=== PATIENT | female | born 1995 | race African-American/Black ===

== ENCOUNTER 2018-03-09 | Emergency (ER) | payer SELFPAY ==
[~2018-03-09] VITALS: Ht 167.6 cm; Wt 75.0 kg
[2018-03-09 00:09] VITALS: BP 130/70; PULSE 100; RESP 18; TEMP 98.3; O2SAT 100
[2018-03-09 00:20] VITALS: BP 128/73; PULSE 107; RESP 18; O2SAT 100
--- NOTE | 2018-03-09 01:03 | RADRPT ---
EXAM DATE/TIME: 03/09/2018 00:47 [place] COMPARISON: No previous studies available for comparison. INDICATIONS : Headaches. RADIATION DOSE: 56.34 CTDIvol (mGy) MEDICAL HISTORY : None SURGICAL HISTORY : None. ENCOUNTER: Initial ACUITY: 1 day PAIN SCALE: 8/10 LOCATION: cranial TECHNIQUE: Multiple contiguous axial images were obtained of the head. Using automated exposure control and adj ustment of the mA and/or kV according to patient size, radiation dose was kept as low as reasonably a chievable to obtain optimal diagnostic quality images. DICOM format image data is available electro nically for review and comparison. FINDINGS: CEREBRUM: The ventricles are normal for age. No evidence of midline shift, mass lesion, hemorrhage or acute in farction. No extra-axial fluid collections are seen. POSTERIOR FOSSA: The cerebellum and brainstem are intact. The 4th ventricle is midline. The cerebellopontine angle i s unremarkable. EXTRACRANIAL: The visualized portion of the orbits is intact. SKULL: The calvaria is intact. No evidence of skull fracture. CONCLUSION: Negative exam. No acute intracranial process to explain current clinical symptoms. Sahil Espinal MD on March 09, 2018 at 1:00 Board Certified Radiologist. This report was verified electronically.
--- NOTE | 2018-03-09 01:04 | PD ---
HPI Chief Complaint: Headache Time Seen by Provider: 00:21 Travel History International Travel<30 days: No Contact w/Intl Traveler<30days: No Traveled to known affect area: No History of Present Illness HPI The patient is a 22 year old female who presents to the [facility] emergency department with a history of irregular vaginal bleeding that began 2 months ago. She has been passing blood clots which is also new. She has severe cramping associated with it. She had menarche at 15 years of age. She additionally has a headache that began last night. It has been constant. It is not getting worse with time. It is worse with bending over. It is all over her head but worse over the forehead. It is a pounding sensation. She denies sensitivity to light. She reports sensitivity to sound. The patient denies any history of fever, sore throat, cough, congestion, neck pain, chest pain, shortness of breath, abdominal pain, vomiting, diarrhea, urinary symptoms, or other neurologic symptoms. PFSH Past Medical History Narrative Medical The patient's past medical history is reported none. Blood Disorders: Yes (pt unsure what is is called) Diminished Hearing: No Tetanus Vaccination: Unknown Influenza Vaccination: No ?: Unknown LMP: 02/06/2018 : 3 Para: 1 Miscarriage: 1 : 1 Past Surgical History Narrative Surgical The patient's past surgical history is significant for an elective - last year. Surgical History: No Previous Surgery Social History Alcohol Use: No Tobacco Use: No Substance Use: No Allergies-Medications (Allergen,Severity, Reaction): Coded Allergies: No Known Allergies (Unverified , 03/09/18) Reported Meds & Prescriptions Reported Meds & Active Scripts Active Macrobid (Nitrofurantoin Monoh/Nitrofur Macro) 100 Mg Cap 100 Mg PO BID 10 Days Flagyl (Metronidazole) 500 Mg Tab 500 Mg PO BID 7 Days Review of Systems Except as stated in HPI: all other systems reviewed are Neg General / Constitutional: No: Fever Eyes: No: Visual changes HENT: Positive: Headaches, No: Rhinorrhea, Congestion, Neck Stiffness, Neck Pain Cardiovascular: No: Chest Pain or Discomfort Respiratory: No: Shortness of Breath Gastrointestinal: No: Nausea, Vomiting, Diarrhea, Abdominal Pain, Changes in Bowel Habits Genitourinary: Positive: Vaginal Bleeding, No: Dysuria Musculoskeletal: No: Pain Skin: No Rash Neurologic: Positive: Headache, No: Weakness, Focal Abnormalities, Change in Mentation, Slurred Speech, Sensory Disturbance Psychiatric: No: Depression Endocrine: No: Polydipsia Hematologic/Lymphatic: No: Easy Bruising Physical Exam Narrative General: The patient is a well-developed well-nourished female in no acute distress. Head and Neck exam: Head is normocephalic atraumatic. Eyes: EOMI, pupils are equal round and reactive to light. Nose: Midline septum with pink mucous membranes Mouth: Dentition unremarkable. Moist mucus membranes. Posterior oropharynx is not erythematous. No tonsillar hypertrophy. Uvula midline. Airway patent. Neck: No palpable lymphadenopathy. No nuchal rigidity. No thyromegaly. Cardiovascular: Regular rate and rhythm without murmurs, gallops, or rubs. Lungs: Clear to auscultation bilaterally. No wheezes, rhonchi, or rales. Abdomen: Soft, without tenderness to palpation in all 4 quadrants of the abdomen. No guarding, rebound, or rigidity. Normal bowel sounds are audible. No tenderness on palpation of McBurney's point. Negative Terrell sign. Extremities: No clubbing, cyanosis, or edema. 2+ pulses in all 4 extremities. No calf tenderness on palpation. Back: No spinous process tenderness to palpation. No costovertebral angle tenderness to palpation. Neurologic Exam: Grossly nonfocal. Skin Exam: No rash noted. Intact skin that is warm and dry. Gynecologic exam: The patient was placed in the dorsal lithotomy position. Her external genitalia were examined. She had no evidence of rash or lesions. The speculum was placed into her vagina and the cervix was identified. She had a physiologic appearing white discharge with an odor. No cervical friability. On Bimanual exam: she has no cervical motion tenderness. No adnexal tenderness or prominence noted on palpation. No uterine tenderness or enlargement noted on palpation. Data Data Last Documented VS Vital Signs Date Time Temp Pulse Resp B/P (MAP) Pulse Ox O2 Delivery O2 Flow Rate FiO2 03/09/18 04:23 03/09/18 00:20 107 18 100 Room Air 03/09/18 00:09 98.3 Orders Orders Complete Blood Count With Diff (03/09/18 00:22) Comprehensive Metabolic Panel (03/09/18 00:22) Prothrombin Time / Inr (Pt) (03/09/18 00:22) Act Partial Throm Time (Ptt) (03/09/18 00:22) Lipase (03/09/18:22) Urinalysis - C+S If Indicated (03/09/18 00:22) Ct Brain W/O Iv Contrast(Rout) (03/09/18 00:22) Iv Access Insert/Monitor (03/09/18 00:22) Ecg Monitoring (03/09/18:22) Oximetry (03/09/18 00:22) Ed Urine Pregnancytest Poc (03/09/18 00:22) Urine Culture (03/09/18 00:47) Gc And Chlamydia Pcr (03/09/18 01:36) Wet Prep Profile (03/09/18 01:36) Ceftriaxone Inj (Rocephin Inj) (03/09/18 01:45) Sodium Chlor 0.9% 1000 Ml Inj (Ns 1000 M (03/09/18 01:45) Ketorolac Inj (Toradol Inj) (03/09/18 01:45) Labs Laboratory Tests Test 03/09/18 00:47 03/09/18 01:59 White Blood Count 11.8 TH/MM3 Red Blood Count 4.24 MIL/MM3 Hemoglobin 12.6 GM/DL Hematocrit 37.3 % Mean Corpuscular Volume 88.0 FL Mean Corpuscular Hemoglobin 29.8 PG Mean Corpuscular Hemoglobin Concent 33.9 % Red Cell Distribution Width 13.8 % Platelet Count 348 TH/MM3 Mean Platelet Volume 7.7 FL Neutrophils (%) (Auto) 63.0 % Lymphocytes (%) (Auto) 28.1 % Monocytes (%) (Auto) 7.1 % Eosinophils (%) (Auto) 1.4 % Basophils (%) (Auto) 0.4 % Neutrophils # (Auto) 7.4 TH/MM3 Lymphocytes # (Auto) 3.3 TH/MM3 Monocytes # (Auto) 0.8 TH/MM3 Eosinophils # (Auto) 0.2 TH/MM3 Basophils # (Auto) 0.0 TH/MM3 CBC Comment DIFF FINAL Differential Comment Prothrombin Time 11.2 SEC Prothromb Time International Ratio 1.1 RATIO Activated Partial Thromboplast Time 26.2 SEC Urine Color YELLOW Urine Turbidity HAZY Urine pH 6.0 Urine Specific Crozier 1.025 Urine Protein TRACE mg/dL Urine Glucose (UA) NEG mg/dL Urine Ketones NEG mg/dL Urine Occult Blood NEG Urine Nitrite NEG Urine Bilirubin NEG Urine Urobilinogen LESS THAN 2.0 MG/DL Urine Leukocyte Esterase MOD Urine RBC 4 /hpf Urine WBC 17 /hpf Urine Squamous Epithelial Cells 6 /hpf Urine Bacteria MANY /hpf Urine Hyaline Casts 2 /lpf Urine Mucus FEW /lpf Microscopic Urinalysis Comment CULTURE INDICATED Blood Urea Nitrogen 12 MG/DL Creatinine 1.05 MG/DL Random Glucose 109 MG/DL Total Protein 8.1 GM/DL Albumin 4.0 GM/DL Calcium Level 9.1 MG/DL Alkaline Phosphatase 68 U/L Aspartate Amino Transf (AST/SGOT) 13 U/L Alanine Aminotransferase (ALT/SGPT) 19 U/L Total Bilirubin 0.2 MG/DL Sodium Level 138 MEQ/L Potassium Level 3.7 MEQ/L Chloride Level 106 MEQ/L Carbon Dioxide Level 22.9 MEQ/L Anion Gap 9 MEQ/L Estimat Glomerular Filtration Rate 66 ML/MIN Lipase 113 U/L Clue Cells (Wet Prep) PRESENT Vaginal Trichomonas (Wet Prep) NONE SEEN Vaginal Yeast (Wet Prep) NONE SEEN Chlamydia trachomatis DNA (PCR) NOT DETECTED Neisseria gonorrhoeae DNA (PCR) NOT DETECTED MDM Medical Decision Making Medical Screen Exam Complete: Yes Emergency Medical Condition: Yes Medical Record Reviewed: Yes Interpretation(s) Last Impressions Head CT 03/09/18 002 Signed Impressions: Service Date/Time: Friday, March 09, 2018 00:47 - CONCLUSION: Negative exam. No acute intracranial process to explain current clinical symptoms. Sahil Espinal MD Differential Diagnosis Dysfunctional uterine bleeding due to anovulatory cycles, versus menorrhagia, versus cervicitis, versus urinary tract infection, versus viral syndrome, versus symptomatic anemia Narrative Course During the course of the patient's emergency department visit, the patient's history, examination, and differential diagnosis were reviewed with the patient. The patient was placed on a cardiac sonographer with oximetry and frequent blood pressure monitoring. The patient had IV access obtained and blood work sent for analysis. The patient was initially provided Normal saline 1 L IV fluid bolus, Toradol for pain. The patient's laboratory studies were reviewed and remarkable for: 03/09/18 00:47 Total Protein 8.1, Albumin 4.0, Calcium Level 9.1, Alkaline Phosphatase 68, Aspartate Amino Transf (AST/SGOT) 13 L, Alanine Aminotransferase (ALT/SGPT) 19, Total Bilirubin 0.2. PT PTT within normal limits, urinalysis shows signs of urinary tract infection with moderate leukocyte esterase, RBCs 4, WBCs 17, many bacteria, culture indicated. Wet prep is positive for clue cells consistent with bacterial vaginosis. GC and Chlamydia are not detected. Radiology studies were reviewed and remarkable for Last Impressions Head CT 03/09/18 0022 Signed Impressions: Service Date/Time: Friday, March 09, 2018 00:47 - CONCLUSION: Negative exam. No acute intracranial process to explain current clinical symptoms. Sahil Espinal MD The patient was given Rocephin 1 g IV for a urinary tract infection. The patient will be discharged home on antibiotic for urinary tract infection and Flagyl for bacterial vaginosis. She was instructed to follow-up with an [employer]Y [employer]IC regarding her dysfunctional uterine bleeding, as she would likely need additional hormone related testing and possible oral contraceptives to regulate her cycle. The patient is resting comfortably and feels better, is alert and in no distress. The patient's results and examination findings were discussed with the patient. The repeat examination is unremarkable and benign. The history, exam, diagnostic testing, and current condition do not suggest any significant pathology to warrant further testing, continued ED treatment, admission, or surgical evaluation at this point. The vital signs have been stable. The patient does not have uncontrollable pain, intractable vomiting, or other significant symptoms. The patient's condition is stable and appropriate for discharge. The patient will pursue further outpatient evaluation with a primary care physician or other designated or consulting physician as indicated in the discharge instructions. The patient was instructed that if she develops any new or worsening signs or symptoms, she should report back immediately to the emergency department. The patient expressed understanding and was agreeable with this plan. Diagnosis Primary Impression: Bacterial vaginosis Additional Impressions: Urinary tract infection Qualified Codes: N30.00 - Acute cystitis without hematuria Uterine bleeding, dysfunctional Referrals: Kerri Saavedra MD 1 week Sql [employer] 1 week [facility] 1 week Patient Instructions: Bacterial Vaginosis (ED), Dysfunctional Uterine Bleeding (ED), General Instructions, Urinary Tract Infection in Women (ED) Med/Other Pt SpecificInfo: Prescription(s) given Scripts Nitrofurantoin Monohydrate Macrocrystals (Macrobid) 100 Mg Cap 100 MG PO BID for Infection for 10 Days, #20 CAP 0 Refills Prov: Geetha Vega MD 03/09/18 Metronidazole (Flagyl) 500 Mg Tab 500 MG PO BID for Infection for 7 Days, #14 TAB 0 Refills Prov: Geetha Vega MD 03/09/18 Disposition: 01 DISCHARGE HOME Condition: Stable Geetha Vega MD Mar 09, 2018 01:04
[2018-03-09 01:06] LABS: BACTERIA, URINE MANY /hpf; BILIRUBIN, URINE NEG (NEG); BLOOD, URINE NEG (NEG); GLUCOSE,URINE NEG (NEG); HYALINE CAST, URINE 2 /lpf (RARE); KETONE, URINE NEG (NEG); MUCUS URINE FEW /lpf (OCC); NITRITE,URINE NEG (NEG); SQUAMOUS EPITHELIAL CELL URINE 6 /hpf (0-5); URINE COLOR YELLOW (YELLW/STRAW); URINE LEUKOCYTE ESTERASE MOD (NEG)
[2018-03-09 01:07] LABS: INTERNATIONAL NORMALIZED RATIO 1.1 RATIO; PROTHROMBIN TIME - PATIENT 11.2 SEC (9.8-11.6)
[2018-03-09 01:08] LABS: AUTOMATED NEUTROPHIL # 7.4 TH/MM3 (1.8-7.7); BASOPHIL % 0.4 % (0.0-2.0); EOSINOPHIL # 0.2 TH/MM3 (0-0.4); EOSINOPHIL % 1.4 % (0.0-4.0); HEMATOCRIT 37.3 % (35.0-46.0); HEMOGLOBIN 12.6 GM/DL (11.6-15.3); LYMPH % 28.1 % (9.0-44.0); LYMPHOCYTE # 3.3 TH/MM3 (1.0-4.8); MEAN CORPUSCULAR HEMOGLOBIN 29.8 PG (27.0-34.0); MEAN CORPUSCULAR HGB CONC 33.9 % (32.0-36.0); MEAN PLATELET VOLUME 7.7 FL (7.0-11.0); MONO % 7.1 % (0.0-8.0); MONOCYTE # 0.8 TH/MM3 (0-0.9); PLATELET COUNT 348 TH/MM3 (150-450); RED BLOOD COUNT 4.24 MIL/MM3 (4.00-5.30); RED CELL DISTRIBUTION WIDTH 13.8 % (11.6-17.2); WHITE BLOOD COUNT 11.8 TH/MM3 (4.0-11.0)
[2018-03-09 01:10] LABS: ALT (GPT) 19 U/L (10-53); AST (GOT) 13 U/L (15-37); BICARBONATE 22.9 MEQ/L (21.0-32.0); BLOOD UREA NITROGEN 12 MG/DL (7-18); CALCIUM 9.1 MG/DL (8.5-10.1); CHLORIDE 106 MEQ/L (98-107); CREATININE 1.05 MG/DL (0.50-1.00); GLOMERULAR FILTRATION RATE 66 ML/MIN (>89); GLUCOSE,RANDOM 109 MG/DL (74-106); SODIUM (NA) 138 MEQ/L (136-145)
[2018-03-09 01:12] LABS: ALKALINE PHOSPHATASE 68 U/L (45-117); TOTAL BILIRUBIN ADULT 0.2 MG/DL (0.2-1.0); TOTAL PROTEIN 8.1 GM/DL (6.4-8.2)
[2018-03-09] MEDS ORDERED: cefTRIAXone INJ 1,000 MG in SODIUM CHLORIDE 0.9% INJ 100 ML IV ONE (01:45)
[2018-03-09] MEDS ORDERED: KETOROLAC TROMETHAMINE 30 MG/ML (IVP) VIAL IV PUSH ONE (01:45)
[2018-03-09] MEDS ORDERED: SODIUM CHLOR 0.9% 1000 ML INJ 1,000 ML IV ONE (01:45)
[2018-03-09] MEDS ORDERED: METR-1 PO (03:53)
[2018-03-09] MEDS ORDERED: MACR100C2 PO (03:53)
== END 2018-03-09 04:24 | disposition home or self-care (01) ==
LOC: NEPC
DX: N76.0 Acute vaginitis (principal); N30.00 Acute cystitis without hematuria; B96.89 Other specified bacterial agents as the cause of diseases classified elsewhere; N93.8 Other specified abnormal uterine and vaginal bleeding
CPT/HCPCS: 70450; 80053; 81001; 83690; 84703; 85025; 85610; 85730; 87077; 87086; 87186; 87210; 87491; 87591; 96365; 96375; 99284; J0696; J1885; J7030